=== PATIENT | female | born 1960 | race Caucasian/White ===

== ENCOUNTER 2023-12-09 20:31 | Emergency (ER) | payer MEDICARE, SELFPAY ==
[2023-12-09] VITALS (22 sets, daily range): BP systolic 73–171; BP diastolic 40–116; PULSE 86–110; RESP 10–23; TEMP 36.7; O2SAT 89–97
--- NOTE | 2023-12-09 20:44 | ED.GENADUL_ITS ---
Discharge Plan Discharge Details Chief Complaint: Anxiety ED Provider: Merrill Serrano Home Meds and New Rx's Prescriptions: No Action No Known Home Meds HPI General Date/Time Provider Initiated Documentation: 12/09/23 20:43 . HPI Narrative: 63 year-old female presents to ED today by POV/ambulating with a chief complaint of syncope in WR- patients was brought in by EMS for intoxication & fall- she and her two adult children who are also intoxicated presented by POV- with onset after arrival. Quality described as anxious- thinks her is arnel alba, states he drank a pint of fireball which is not that much for his daily habit, but it's not normal he fell, expressed high level of anxiety, no radiation to chest pain, nausea/vomiting, fever- patient states she had a stroke 13 years ago, has essential tremor. Severity is described as unable to quantify. Palliating factors include nothing specific. Provoking factors include nothing specific. Patient not anticoagulated. Related Data Home Medications Medication Instructions Recorded Confirmed Unknown [No Known Home Meds] 12/09/23 12/09/23 Allergies Allergy/AdvReac Type Severity Reaction Status Date / Time No Known Allergies Allergy Unverified 12/09/23 21:27 General Stated Complaint: Anxiety MINNIE: 3 Review of Systems All systems reviewed & are unremarkable except as noted in HPI and below Exam Narrative Exam Narrative: GENERAL APPEARANCE: Well-nourished, non-toxic, awake and intoxicated, atraumatic, no acute distress. SKIN: Warm, pale, dry, intact, without rashes/lesions/ulcerations. HEAD: Normocephalic, atraumatic, normal hair distribution for gender/age. EYES: Pupils PERRLA, EOMs intact without nystagmus, normal conjunctiva, no exudates on lids/lashes. ENT: Nares patent, no circumoral cyanosis, no facial swelling NECK: Supple, trachea midline, painless cervical ROM. LUNGS/CHEST: Lungs CTA bilaterally- no rhonchi/rales/wheezes diffusely, non- labored respirations, normal A/P diameter, symmetrical expansion, no chest wall deformity HEART (CV/PV): Regular rate and rhythm without murmur, no peripheral edema, no JVD. ABDOMEN: Soft, non-distended, no guarding, no tenderness. MSK: Normal ROM, no swelling/deformity to bilateral UEs or LEs, moving all extremities without weakness, no cyanosis, spine midline without tenderness, normal curvature. NEURO: Mental Status AAOx4 - alert to person, place, time, events No facial droop, no forehead involvement. Motor: No focal weakness - strength 5/5 in bilateral UEs and LEs, proximal and distal, symmetric. - essential tremor Sensory: sensation intact to light touch globally. Gait normal: patient ambulated without ataxia into ED room. PSYCH: euthymic, cooperative, pleasant, appropriate speech Course Vital Signs Vital signs: Vital Signs Temperature 36.7 C 12/09/23 20:35 Pulse 108 H 12/09/23 20:35 Respiratory Rate 18 12/09/23 20:35 Blood Pressure 99/54 L 12/09/23 20:35 Pulse Oximetry 95 12/09/23 20:35 Temperature 36.7 C 12/09/23 20:35 Pulse 108 H 12/09/23 20:35 Respiratory Rate 18 12/09/23 20:39 Respiratory Effort Normal 12/09/23 20:39 Respiratory Depth Normal 12/09/23 20:39 Respiratory Pattern Normal 12/09/23 20:39 Blood Pressure 99/54 L 12/09/23 20:35 Pulse Oximetry 95 12/09/23 20:35 Oxygen Delivery Method Room Air 12/09/23 20:35 Oxygen Flow Rate 0 12/09/23 20:35 Pain Level 0 12/09/23 20:35 Medical Decision Making This dictation utilizes [id number]-[id number] dictation software and may contain unedited grammatical errors. 63 y/o F presents to ED today with a chief complaint of syncope in WR- very anxious about her intoxicated who was brought in for a fall while intoxicated- she states she cannot live without him, syncopizes many times and is working herself up over his condition despite him being awake and alert speaking loudly from the next room. Patient denies chest pain, states she had 1/2 of 1 martini. Patients' medical history: stroke 13 years ago, otherwise denies major medical history. Family and social history: noncontributory. Pertinent exam findings / vital signs include pale, anxious, intoxicated, strong scent of alcohol in room. Differential / pathologies of concern include syncope, ACS, alcohol intoxication, anxiety, electrolyte abnormality, dehydration. Diagnostic studies of: -CBC, CMP, ethyl alcohol level, lactate, lipase, liver panel, magnesium, troponin (+3hr value), EKG. -EKG shows sinus rhythm with low voltage, P waves followed by narrow complex QRS, normal axis deviation, no ST changes, normal QT QTc -CBC shows leukocytosis to 11.8 -initial lactate 3.3 -CMP shows anion gap at 15.9 -ETOH level 165.3, not consistent with 1/2 of 1 drink -Initial troponin negative, 3hr repeat pending due to multiple episodes of syncope - repeat at 2345 -lipase wnl -LFTs wnl Interventions of: -IV Banana Bag. ED Course/Assessment/Plan: 63-year-old female presents by POV with her adult children after her was brought in by EMS for fall while intoxicated, appears all members are some level of intoxicated. The patient has high anxiety states that is not normal for her to fall despite significant alcohol use, I tried to reassure her that everything was likely fine and her was awake and talking and there was no apparent injury, she proceeded to have brief episodes of syncope he repeatedly she had soft BP on arrival was normalized, providing IV fluids of a banana bag, her EKG is benign initial troponin is negative but due to multiple episodes of syncope likely needs a delta value, she does have a small white count as well as lactate, this may be due to prolonged alcohol intoxication and poor p.o. intake, I do not suspect sepsis at this time the patient is afebrile and denies recent illness, patient signed out to oncoming provider Dr. Aura Degroot at shift change with pending repeat troponin at 2345. Findings not consistent with Sepsis, ACS, likely anxiety and intoxication - full disposition pending. Disposition of Alcohol Intoxication. Patient verbalized understanding of the plan and return to ED criteria and engaged in shared decision making. Medical Records Medical records reviewed: Yes I reviewed the patient's medical records. Lab Data Lab results reviewed: Yes I reviewed the patient's lab results. Quality:[facility] Health Related Social Needs: No Data to Display [facility] Social History Smoking risk assessment performed?: No Sign Out Sign Out Data: Sign Out Comment: Multiple episodes syncope, likely anxiety due to being brought by EMS - brief syncope at triage and in WR on arrival, intoxicated. Did have elevated lactate, pending repeat trop and lactate 2345 Last updated by Merrill Serrano PA at 12/09/23 22:05
--- NOTE | 2023-12-09 20:45 | RT.EKG_ITS ---
APPROVED REPORT Exam: Resting ECG Reason for Exam: syncope Patient Location: E HR:95 bpm ECG Measurements Heart Rate 95 AXIS AL 137 P 65 QRSd 91 QRS -24 QT 349 T 60 QTc 439 Conclusion Sinus rhythm 95 no stemi
[2023-12-09 21:08] LABS: Abs Immature Grans 0.07 10^3/uL (0.0-0.06); HCT 44.3 % (36.0-46.0); HGB 14.4 g/dL (11.2-15.7); MCHC 32.5 % (32.0-36.0); MCV 86 fL (80-95); MPV 9.7 fL (8.0-11.0); Platelet Count 431 10^3/uL (130-400); RBC 5.15 10^6/uL (3.93-5.22); RDW-SD 44.6 fL; WBC 11.85 10^3/uL (4.4-10.8)
[2023-12-09] MEDS: MAGNESIUM SULFATE 8.12 MEQ, MULTIVITAMIN 10 ML, THIAMINE 100 MG, FOLIC ACID 1 MG in Nor... 168.867 MG IV (21:09)
[2023-12-09 21:11] LABS: Lactate 3.3 mmol/L (0.6-1.4)
[2023-12-09 21:21] LABS: Absolute Eosinophil Count 0.12 10^3/uL (0.0-0.7); Absolute Lymphocyte Count 5.33 10^3/uL (1.2-3.4); Absolute Monocyte Count 0.71 10^3/uL (0.1-0.8); Absolute Neutrophil Count 5.69 10^3/uL (1.2-6.7); Atypical Lymphocytes % 4; Bands % 1
[2023-12-09 21:22] LABS: Diff Comment Diff Reviewed; RBC Morphology Normal
[2023-12-09 21:32] LABS: ALT 26 U/L (14-59); AST 17 U/L (15-37); Albumin 3.7 g/dL (3.4-5.0); Alkaline Phosphatase 104 U/L (46-116); Anion Gap 15.9 mmol/L (3-11); BUN 9 mg/dL (7-18); Bilirubin, Direct 0.1 mg/dL (0.0-0.2); Bilirubin, Total 0.2 mg/dL (0.2-1.0); CO2 20.1 mmol/L (21.0-32.0); CREATININE 0.8 mg/dL (0.55-1.02); Calcium 9.6 mg/dL (8.5-10.1); Chloride 104 mmol/L (98-107); ETHANOL BLOOD 165.3 mg/dL (<10); Estimated GFR 82.74 (mL/min/1.73m2); Glucose 102 mg/dL (74-106); Lipase 44 U/L (16-77); Potassium 3.7 mmol/L (3.5-5.1); Sodium 140 mmol/L (136-145); Total Protein 8.1 g/dL (6.4-8.2); Troponin I < 50 ng/L (< or =60)
--- NOTE | 2023-12-09 22:09 | ED.PROG_ITS ---
Date of service: 12/09/23 Time of Service: 22:09 Medical Decision Making This patient was in the process of being signed out to by the offgoing provider (see his completed note) when we were notified by nursing that patient wanted to leave AMA. AMA paperwork was signed and patient left department without my donahue ving the opportunity to evaluate the patient myself. Quality:[facility] Health Related Social Needs: No Data to Display Sign Out Sign Out Data: Sign Out Comment: Multiple episodes syncope, likely anxiety due to being brought by EMS - brief syncope at triage and in WR on arrival, intoxicated. Did have elevated lactate, pending repeat trop and lactate 234 Last updated by Merrill Serrano, PA at 12/09/23 22:05 Discharge Plan Disposition Patient Disposition: Against Medical Advice Discharge Details Chief Complaint: Anxiety Clinical Impression: Syncope ED Provider: Merrill Serrano Home Meds and New Rx's Prescriptions: No Action No Known Home Meds
== END 2023-12-09 22:20 | disposition left against medical advice (07) ==
LOC: ER 22:41
PROVIDERS: Emergency Provider Physician Assistant
DX: R55 Syncope and collapse (principal); F10.120 Alcohol abuse with intoxication, uncomplicated; Z86.73 Personal history of transient ischemic attack (TIA), and cerebral infarction without residual deficits; Z53.29 Procedure and treatment not carried out because of patient's decision for other reasons; Y90.6 Blood alcohol level of 120-199 mg/100 ml
CPT/HCPCS: 00123; 80053; 80076; 83690; 93005; 96365; 96366; 99284; 80320; 83605; 83735; 84484; 85025; 93010; J3411; J3475